=== PATIENT | female | born 1945 | race Hispanic/Latino ===

== ENCOUNTER 2019-11-30 08:21 | Outpatient (CLI) | payer MEDICARE ==
--- NOTE | 2019-11-30 11:41 | MRI ---
BRAIN MRI WITHOUT IV CONTRAST: HISTORY: Memory loss. FINDINGS: There are some sinus mucosal changes involving the sphenoid, ethmoid, and frontal sinuses with less m arked changes in the maxillary sinuses. There is no focal mass or midline shift. No intra- or extra axial hemorrhage. There is some minimal patchy white matter changes bilaterally probably representin g some minimal white matter ischemic changes. No focal mass or midline shift. No intra- or extraaxi al hemorrhage. No evidence for abnormal restricted diffusion to suggest acute infarct. IMPRESSION: Sinus mucosal changes. Mild atrophy and chronic whit matter ischemic changes. No evidence for other significant acute process. POS: OFF
== END 2019-11-30 08:22 | disposition home or self-care (01) ==
LOC: SCSMRI 08:21
PROVIDERS: ATTEND Family Medicine
DX: R41.3 Other amnesia (principal); G31.89 Other specified degenerative diseases of nervous system
CPT/HCPCS: 70551